=== PATIENT | female | born 1935 | race American Indian/Alaskan Native ===

== ENCOUNTER 2019-07-03 15:09 | Emergency (ER) | payer MEDICARE, OTHER ==
[2019-07-03 15:18] VITALS: BP 139/44
--- NOTE | 2019-07-03 15:20 | Emergency Department Report ---
Blank Doc - Documentation Documentation: 83-year-old female that presents with right toe pain. This initial assessment/diagnostic orders/clinical plan/treatment(s) is/are subject to change based on patient's health status, clinical progression and re- assessment by fellow clinical providers in the ED. Further treatment and workup at subsequent clinical providers discretion. Patient/guardians urged not to elope from the ED as their condition may be serious if not clinically assessed and managed. Initial orders include: 1- Patient sent to [facility] for further evaluation and treatment 2- xrays
--- NOTE | 2019-07-03 15:58 | XRay Report ---
Right foot, 3 views INDICATION: Foot pain, great toe pain. COMPARISON: None. IMPRESSION: Slightly limited exam. The patient appears to be wearing a soft or has an overlying band age. No displaced fracture is confidently identified. Mild diffuse degenerative changes are identifi ed. The soft tissues are unremarkable. Signer Name: Ventura Stallings Jr, MD Signed: 07/03/2019 3:54 PM Workstation Name: [id number]
[2019-07-03] MEDS ORDERED: XYLOCAINE 1% MPF 5 mL INFILTRATI ONE (19:29)
[2019-07-03] MEDS ORDERED: KEFLEX PO ONE (19:29)
[2019-07-03] MEDS ORDERED: TYLENOL PO ONE (19:29)
[2019-07-03] MEDS ORDERED: TRIPLE ANTIBIOTIC TP ONE (22:12)
--- NOTE | 2019-07-03 22:35 | Emergency Department Report ---
ED Lower Extremity HPI - General Chief Complaint: Extremity Injury, Lower Stated Complaint: RT TOE INJURY/PAIN Time Seen by Provider: 07/03/19 15:16 Source: patient Mode of arrival: Ambulatory Limitations: No Limitations - History of Present Illness Initial Comments: Patient is an 83-year-old -[place] female with no past medical history who presents to the ED with complaint of acute onset painful dorsal right great toe bleeding laceration after she stumbled on a carpet when walking down the stairs and twisted her right great toe causing the laceration about 8 hours ago. Patient states that she was initially evaluated by her primary care physician but was referred to the ED for imaging to rule out a fracture of the right great toe on for repair right great toe laceration. Patient denies fall, dizziness, syncope, loss of consciousness, nausea, vomiting, back pain, numbness and tingling right foot and right great toe or hip pain. MD Complaint: foot injury (right great toe bleeding laceration with pain) -: Sudden, hour(s) (8) Injury: Foot: Right (pain), Toes: Right (right great toe bleeding laceration) Type of Injury: blunt, laceration (right great toe bleeding laceration) Place: home Severity: moderate Severity scale (0 -10): 6 Improves With: nothing Context: direct blow, walking, other (twisted right great toe) Associated Symptoms: swelling, ambulatory. denies: snap/pop sensation, numbness, tingling, unable to bear weight, able to partially bear weight - Related Data Previous Rx's Medication Instructions Recorded Last Taken Type Ibuprofen [Motrin] 600 mg PO Q8H PRN #20 tablet 07/03/19 Unknown Rx cephALEXin [Keflex] 500 mg PO Q8HR #30 cap 07/03/19 Unknown Rx Allergies Allergy/AdvReac Type Severity Reaction Status Date / Time No Known Allergies Allergy Unverified 07/03/19 15:18 ED Review of Systems ROS: Stated complaint: RT TOE INJURY/PAIN Other details as noted in HPI Constitutional: denies: chills, fever Eyes: denies: eye pain, eye discharge, vision change ENT: denies: ear pain, throat pain Respiratory: denies: cough, shortness of breath, wheezing Cardiovascular: denies: chest pain, palpitations Endocrine: no symptoms reported Gastrointestinal: denies: abdominal pain, nausea, diarrhea Genitourinary: denies: urgency, dysuria, discharge Musculoskeletal: arthralgia (Bleeding right great toe laceration with pain). denies: back pain, joint swelling Skin: other (Bleeding dorsal right great toe laceration). denies: rash, lesions Neurological: denies: headache, weakness, paresthesias Psychiatric: denies: anxiety, depression Hematological/Lymphatic: denies: easy bleeding, easy bruising ED Past Medical Hx - Past Medical History Previous Medical History?: No - Surgical History Past Surgical History?: No - Social History Smoking Status: Never Smoker Substance Use Type: None - Medications Home Medications: Home Medications Medication Instructions Recorded Confirmed Last Taken Type Ibuprofen [Motrin] 600 mg PO Q8H PRN #20 tablet 07/03/19 Unknown Rx cephALEXin [Keflex] 500 mg PO Q8HR #30 cap 07/03/19 Unknown Rx ED Physical Exam - General Limitations: No Limitations General appearance: alert, in no apparent distress - Head Head exam: Present: atraumatic, normocephalic, normal inspection - Eye Eye exam: Present: normal appearance, PERRL, EOMI - ENT ENT exam: Present: normal exam, normal orophraynx, mucous membranes moist, TM's normal bilaterally, normal external ear exam - Neck Neck exam: Present: normal inspection, full ROM. Absent: tenderness, lymphadenopathy - Respiratory Respiratory exam: Present: normal lung sounds bilaterally. Absent: respiratory distress, wheezes, rales, rhonchi, chest wall tenderness, accessory muscle use, prolonged expiratory - Cardiovascular Cardiovascular Exam: Present: regular rate, normal rhythm, normal heart sounds. Absent: systolic murmur, diastolic murmur, rubs, gallop - GI/Abdominal GI/Abdominal exam: Present: soft, normal bowel sounds. Absent: tenderness, hyperactive bowel sounds, hypoactive bowel sounds, organomegaly - Rectal Rectal exam: Present: deferred - Extremities Exam Extremities exam: Present: normal inspection, tenderness (right great toe bleeding 3 cm laceration with tenderness), normal capillary refill. Absent: pedal edema, joint swelling, calf tenderness - Back Exam Back exam: Present: normal inspection, full ROM. Absent: tenderness, CVA tenderness (R), CVA tenderness (L), muscle spasm, paraspinal tenderness, vertebral tenderness - Neurological Exam Neurological exam: Present: alert, oriented X3, CN II-XII intact, normal gait, reflexes normal - Psychiatric Psychiatric exam: Present: normal affect, normal mood - Skin Skin exam: Present: warm, dry, intact, normal color, other (Bleeding 3 cm laceration on dorsal right great toe). Absent: rash ED Course Vital Signs 07/03/19 15:16 Temperature 97.6 F Pulse Rate 78 Respiratory 19 Rate Blood Pressure 139/44 [Left] O2 Sat by Pulse 99 Oximetry - Reevaluation(s) Reevaluation #1: This is an 83-year-old female who presented to the ED with bleeding also right great toe laceration after he stumbled on a carpet and twisted her right great toe against a set of steps at home. In the ED, patient is alert and oriented 3 and is not in distress, fully conversational unpleased sending the physical exam. Right foot x-ray shows no acute fractures or subluxations of right great toe. Patient was treated for pain and also given initial oral antibiotic, Keflex 1 g by mouth 1. The dorsal right great toe laceration was sutured per protocol and the patient to let her to the procedure well. The wound was dressed appropriately and the patient discharged home on pain medications and antibiotics and advised to follow-up with her primary care physician in 7-10 days for reevaluation or return to the ED immediately if symptoms get worse. Patient was also advised with the sutures removed in 12-14 days in the ED or by her primary care physician. Patient verbalized understanding of the procedure and wound care, and return precautions to the ED. 07/03/19 22:42 - Laceration /Wound Repair Right Dorsal Toe Wound Location: lower extremity (Dorsal right great toe laceration) Wound Explored: contaminated Irrigated w/ Saline (ccs): 50 Betadine Prep?: Yes Anesthesia: 1% Lidocaine Volume Anesthetic (ccs): 5 Wound Debrided: extensive Wound Repaired With: sutures Suture Size/Type: 3:0, proline Number of Sutures: 7 Layer Closure?: No Sterile Dressing Applied?: Yes Progress: Patient tolerated laceration procedure well. Post-procedure evaluation showed the right great toe is neurovascularly intact. Patient discharged home on pain medications on prophylactic antibiotics and advised to follow-up with her primary care physician in 7-10 days for reevaluation. Patient advised to return to the ED or to her primary care physician in 12-14 days for suture removal. ED Lower Extremity MDM - Radiology Data Radiology results: report reviewed, image reviewed Findings [facility] [address] [place] [address] XRay Report Signed Patient: LEILANI ACEVEDO MR#: [id number] : 1935 Acct:[id number] Age/Sex: 83 / F ADM Date: 07/03/19 Loc: ED Attending Dr: Ordering Physician: HIREN MEZA NP Date of Service: 07/03/19 Procedure(s): XR foot 3+V RT Accession Number(s): [id number] cc: HIREN MEZA NP Fluoro Time In Minutes: Right foot, 3 views INDICATION: Foot pain, great toe pain. COMPARISON: None. IMPRESSION: Slightly limited exam. The patient appears to be wearing a soft or has an overlying bandage. No displaced fracture is confidently identified. Mild diffuse degenerative changes are id entified. The soft tissues are unremarkable. Signer Name: Ventura Stallings Jr, MD Signed: 07/03/2019 3:54 PM Workstation Name: [id number] Transcribed By: TTR Dictated By: VENTURA STALLINGS JR, MD Electronically Authenticated By: VENTURA STALLINGS JR, MD Signed Date/Time: 07/03/19 4542 - Medical Decision Making If Plantar Puncture Wound, Discussed with Patient: Risk of Infection, Risk of Foreign Body in W This is an 83-year-old female who presented to the ED with bleeding also right great toe laceration after he stumbled on a carpet and twisted her right great toe against a set of steps at home. In the ED, patient is alert and oriented 3 and is not in distress, fully conversational unpleased sending the physical exam. Right foot x-ray shows no acute fractures or subluxations of right great toe. Patient was treated for pain and also given initial oral antibiotic, Keflex 1 g by mouth 1. The dorsal right great toe laceration was sutured per protocol and the patient to let her to the procedure well. The wound was dressed appropriately and the patient discharged home on pain medications and antibiotics and advised to follow-up with her primary care physician in 7-10 days for reevaluation or return to the ED immediately if symptoms get worse. Patient was also advised with the sutures removed in 12-14 days in the ED or by her primary care physician. Patient verbalized understanding of the procedure and wound care, and return precautions to the ED. - Differential Diagnosis Right great toe fracture; Opne fracture; Laceration; contusion Critical care attestation.: If time is entered above; I have spent that time in minutes in the direct care of this critically ill patient, excluding procedure time. ED Disposition Clinical Impression: Laceration of right great toe w/o foreign body w/o damage to nail Qualifiers: Encounter type: initial encounter Qualified Code(s): S91.111A - Laceration without foreign body of right great toe without damage to nail, initial encounter Contusion of right foot Qualifiers: Encounter type: initial encounter Qualified Code(s): S90.31XA - Contusion of right foot, initial encounter Disposition: TO HOME OR SELFCARE Is pt being admited?: No Does the pt Need Aspirin: No Condition: Stable Instructions: Laceration (ED), Suture Care (ED), Contusion in Adults (ED) Additional Instructions: Take medications with food, drink plenty of fluids and follow-up with your primary care physician in 7-10 days for reevaluation. Return to the ED immediately if symptoms get worse especially if he develops severe swelling and pain, nausea and vomiting, fever, chills, purulent discharge from the wound. Otherwise return to the ED or to her primary care physician for suture removal in 12-14 days. Prescriptions: cephALEXin [Keflex] 500 mg PO Q8HR #30 cap Ibuprofen [Motrin] 600 mg PO Q8H PRN #20 tablet PRN Reason: Pain Referrals: FREDIS CARTER PA [Primary Care Provider] - 3-5 Days Time of Disposition: 22:33 Print Language: SPANISH
== END 2019-07-03 22:42 | disposition home or self-care (01) ==
LOC: ED 15:09
DX: S91.111A Laceration without foreign body of right great toe without damage to nail, initial encounter (principal); S90.31XA Contusion of right foot, initial encounter; W10.9XXA Fall (on) (from) unspecified stairs and steps, initial encounter; Y93.89 Activity, other specified; Y92.89 Other specified places as the place of occurrence of the external cause; Y99.8 Other external cause status
CPT/HCPCS: A6250